=== PATIENT | male | born 1990 | race Caucasian/White ===

== ENCOUNTER 2020-08-06 15:35 | Emergency (ER) | payer OTHER ==
[~2020-08-06] VITALS: Ht 185.4 cm; Wt 112.5 kg
[2020-08-06 15:47] VITALS: BP 133/83
--- NOTE | 2020-08-06 16:15 | NUR ---
PT TAKEN TO BED 2.
--- NOTE | 2020-08-06 16:40 | NUR ---
Patient assessed and treated by Dr Akers. Patient discharged with v/s stable. Written and verbal after care instructions about anal fissure and hemorrhoids given and explained. Patient alert, oriented and verbalized understanding of instructions. Ambulatory with steady gait. All questions addressed prior to discharge. ID band removed. Patient advised to follow up with PMD. Rx of hydrocortisone, rectiv, docusate sodium given. Patient educated on indication of medication including possible reaction and side effects. Opportunity to ask questions provided and answered.
--- NOTE | 2020-08-06 16:40 | NUR ---
Note juanita in EDM - 08/06/20 at 1646 by YOVANI Patient discharged with v/s stable. Written and verbal after care instructions about anal fissure and hemorrhoids given and explained. Patient alert, oriented and verbalized understanding of instructions. Ambulatory with steady gait. All questions addressed prior to discharge. ID band removed. Patient advised to follow up with PMD. Rx of hydrocortisone, rectiv, docusate sodium given. Patient educated on indication of medication including possible reaction and side effects. Opportunity to ask questions provided and answered.
[2020-08-06 16:44] VITALS: BP 133/83
== END 2020-08-06 16:40 | disposition home or self-care (01) ==
LOC: MED 15:35
DX: K60.2 Anal fissure, unspecified (principal); K64.9 Unspecified hemorrhoids
CPT/HCPCS: 99283